=== PATIENT | female | born 2000 | race Caucasian/White ===

== ENCOUNTER 2020-09-18 12:57 | Emergency (ER) | payer OTHER, SELFPAY ==
[2020-09-18 12:59] VITALS: BP 150/107; PULSE 108; RESP 18; TEMP 36.6; O2SAT 96
--- NOTE | 2020-09-18 13:48 | ED.DENTAL ---
HPI - Dental/Oral General Chief complaint: Dental/Oral Stated complaint: tooth pain Time Seen by Provider: 09/18/20 13:10 History of Present Illness HPI Narrative: Patient is a 19-year-old female who presents the ER with dental and facial pain. Reports she has been having pain at tooth #5 over the last week and has been radiating up into her face and behind her eye. Worse with cold water movement. No facial swelling. No drainage. No fevers or chills or sweats. Had originally fractured the tooth months ago. Related Data Home Medications Medication Instructions Recorded Confirmed No Home Medications 09/18/20 09/18/20 Allergies Allergy/AdvReac Type Severity Reaction Status Date / Time No Known Allergies Allergy Verified 09/18/20 13:01 Review of Systems Constitutional: Constitutional: Denies chills, Denies fever(s) and Denies weakness ENT: Denies dysphagia, Denies nasal congestion and Denies sore throat Comments: Dental pain Respiratory: Respiratory: Denies cough and Denies dyspnea PMFSH Past Medical History Medical History (Updated 09/18/20 @ 13:57 by Maicol Sullivan MD) Healthy female adult Surgical History Surgical History (Updated 09/18/20 @ 13:55 by Maicol Sullivan MD) No history of previous surgery Social History Social History (Updated 09/18/20 @ 13:55 by Maicol Sullivan MD) Substance use type: methamphetamine Other substance usage details: Quit 9 months ago Gender identity (if verbalized by the patient): Female Exam Narrative: Exam Narrative: GENERAL: Well-appearing, well-nourished, and in no acute distress. HEAD: Normocephalic, atraumatic. ENT: Mucous membranes moist. Small fractured tooth #5 without obvious abscess. EXTREMITIES: Normal range of motion. Normal strength. NEURO: Alert and oriented x3. PSYCH: Normal mood and affect. Course Vital Signs Vital signs: Vital Signs Temperature 98 F 09/18/20 12:59 Pulse Rate 108 H 09/18/20 12:59 Respiratory Rate 18 09/18/20 12:59 Blood Pressure 150/107 H 09/18/20 12:59 Pulse Oximetry 96 09/18/20 12:59 Temperature 98 F 09/18/20 12:59 Pulse Rate 108 H 09/18/20 12:59 Respiratory Rate 18 09/18/20 12:59 Blood Pressure 150/107 H 09/18/20 12:59 Pulse Oximetry 96 09/18/20 12:59 Discharge Plan Discharge Clinical Impression: Toothache Patient Disposition: Home, Self-Care Condition: Stable Instructions: Toothache (ED) Additional Instructions: Go to the pharmacy and purchase some dental wax to place over your fractured tooth. This may decrease the sensitivity. Take the antibiotics as prescribed. You need to contact your dentist and arrange follow-up care plan. Return to the ER if you cannot breathe, you cannot swallow, you have additional concerns. Prescriptions: New amoxicillin 500 mg capsule 500 mg PO Q8H Qty: 21 RF: 0 No Action No Home Medications RF: 0 Follow-up/Referrals: Adria Fajardo MD [Primary Care Provider] - Stand Alone Forms: Work/School Release IP
[2020-09-18] MEDS: HYDROcodone/acetaminophen (*CRX) 5-325 MG TABLET 1 TAB PO (13:56)
[2020-09-18 14:25] VITALS: PULSE 99; RESP 12; O2SAT 99
== END 2020-09-18 14:25 | disposition home or self-care (01) ==
PROVIDERS: Emergency Provider Emergency Medicine; PCP Family Medicine
DX: K08.89 Other specified disorders of teeth and supporting structures (principal)
CPT/HCPCS: 99283; A9270

== ENCOUNTER 2020-11-06 10:38 | Outpatient (CLI) | payer OTHER, SELFPAY ==
--- NOTE | ~2020-11-06 | US_ITS ---
US OB <= 14 weeks fetus DATE: 11/06/2020 11:50 INDICATION: Supervision of normal TECHNIQUE: Real-time imaging and Doppler analysis COMPARISON: None FINDINGS: Live higgins intrauterine gestation. The fetus was active in various positions. hea rt rate of 152 bpm. Biparietal diameter 2.66 cm; 14 weeks 5 days Head circumference 9.67 cm; 14 weeks 3 days Abdominal circumference 7.78 cm; 14 weeks 2 days Femur length 1.52 cm; 14 weeks 3 days Composite age by Hadlock formula is 14 weeks 3 days +/- 1 week; SANGEETA is 05/04/2021, compared to 05/06/20 by LMP. Head circumference/abdominal supervising architect was 1.24, within normal range of 1.08-1.37. 1.3 x 0.6 x 0.6 cm hypoechoic area adjacent to the gestational sac suggests a small subchorionic hussain dhiraj. Anterior placenta. Subjectively normal amount of amniotic fluid. The left ovary is not visualized. Right ovary 3.9 x 2.7 x 1.6 cm size. There is a 1.3 x 1.8 x 1.1 cm right ovarian cyst. IMPRESSION: Composite age by Hadlock formula is 14 weeks 3 days +/- 1 week; SANGEETA is 05/04/2021, compare d to 05/06/2021 by LMP Possible small subchorionic hematoma. Reviewed, dictated and finalized at [facility]. Reviewed, dictated and finalized at [facility]. IMPRESSION: Composite age by Hadlock formula is 14 weeks 3 days +/- 1 week; SANGEETA is 05/04/2021, compared to 05/06/2021 by LMP Possible small subchorionic hematoma.
== END 2020-11-06 10:39 | disposition home or self-care (01) ==
PROVIDERS: PCP Family Medicine; Visit Provider Obstetrics & Gynecology
DX: Z34.92 Encounter for supervision of normal pregnancy, unspecified, second trimester (principal); Z3A.14 14 weeks gestation of pregnancy
CPT/HCPCS: 76801

== ENCOUNTER 2021-05-17 11:19 | Emergency (ER) | payer OTHER, SELFPAY ==
[2021-05-17 11:43] VITALS: BP 158/100; PULSE 89; RESP 16; TEMP 36.5; O2SAT 98
--- NOTE | 2021-05-17 11:47 | ED.URI ---
HPI - URI/Sore Throat General Chief Complaint: Upper Respiratory Infection Stated Complaint: s/t, runny nose Time Seen by Provider: 05/17/21 11:37 History of Present Illness HPI Narrative: Patient with sore throat congestion and fevers. Reports symptoms started yesterday. Reports her significant other has been sick for the past couple days she concerned and wanted to come in for evaluation. She denies any nausea vomiting or diarrhea. She denies shortness of breath. She does report she completed her vaccination series. She denies chest pain or abdominal pain Related Data Home Medications Medication Instructions Recorded Confirmed No Home Medications 09/18/20 09/18/20 Allergies Allergy/AdvReac Type Severity Reaction Status Date / Time No Known Allergies Allergy Verified 05/17/21 11:46 Review of Systems Review of Systems: CONSTITUTIONAL: Denies fever, chills, or sweats. EYES: Denies visual changes, redness, or discharge. ENT: Reports congestion and sore throat CARDIOVASCULAR: Denies chest pain, palpitations, or edema. RESPIRATORY: Denies dyspnea. GASTROINTESTINAL: Denies abdominal pain, nausea, vomiting, or diarrhea. GENITOURINARY: Denies dysuria or hematuria. SKIN: Denies rash or itching. MUSCULOSKELETAL: Denies back pain, joint pain, or myalgia. NEUROLOGIC: Denies headache, numbness, dizziness, or weakness. PSYCHIATRIC: Denies anxiety or depression. All systems reviewed & are unremarkable except as noted in HPI and below PMFSH Past Medical History Medical History Healthy female adult Surgical History Surgical History No history of previous surgery Social History Social History Substance use type: methamphetamine Other substance usage details: Quit 9 months ago Gender identity (if verbalized by the patient): Female Exam Narrative: GENERAL: Well-appearing, well-nourished, and in no acute distress. HEAD: Normocephalic, atraumatic. EYES: PERRLA and EOMI. ENT: Nares clear, no rhinorrhea or epistaxis. Mucous membranes moist. Erythema in the posterior pharynx no exudates bilateral lymphadenopathy noted NECK: Supple. No masses. No JVD CHEST: Clear to auscultation. No respiratory distress. No wheezes rales or rhonchi HEART: Regular rate and rhythm. No murmur heard. Normal peripheral pulses. ABDOMEN: Soft, nontender, nondistended, normal active bowel sounds. EXTREMITIES: Normal range of motion. No edema. SKIN: Warm, dry, no rash. NEURO: No focal deficits. Alert and oriented x3. PSYCH: Normal mood and affect. Course Reevaluation(s) Reevaluation #1: Patient is resting comfortably feeling improved results and plan reviewed with patient. Patient comfortable outpatient plan. Date: 05/17/21 Time: 12:35 Vital Signs Vital signs: Vital Signs Temperature 36.5 C 05/17/21 11:43 Pulse Rate 89 05/17/21 11:43 Respiratory Rate 16 05/17/21 11:43 Blood Pressure 158/100 H 05/17/21 11:43 Pulse Oximetry 98 05/17/21 11:43 Temperature 36.5 C 05/17/21 11:43 Pulse Rate 89 05/17/21 11:43 Respiratory Rate 16 05/17/21 11:43 Blood Pressure 158/100 H 05/17/21 11:43 Pulse Oximetry 98 05/17/21 11:43 MDM - URI/Sore Throat MDM Narrative Medical decision making narrative: H&P as above, vs with mild hypertension, pt looks clinically well, exam reassuring, labs reassuring, additional labs/img considered, symptomatic relief available as needed, on reevaluation pt continues to looks clinically well. Suspect viral process, dns severe sepsis, pneumonia, AERONAUTICAL DESIGN ENGINEER, airway compromise. plan to tx/monitor as op w/ pcm f/u findings/plan discussed with pt, pt agree/comfortable with plan, return precautions given. Lab Data Labs: Strep Screen Presumptive Negative *(Reference Range: Negative)*
[2021-05-17] MEDS: ACETAMINOPHEN 500 MG TABLET 1000 MG PO (11:57)
== END 2021-05-17 12:53 | disposition home or self-care (01) ==
PROVIDERS: Emergency Provider Emergency Medicine
DX: J02.9 Acute pharyngitis, unspecified (principal)
CPT/HCPCS: 87081; 87880; 99283; A9270

== ENCOUNTER 2024-01-03 14:59 | Emergency (ER) | payer BC, MEDICAID, SELFPAY ==
[2024-01-03 15:04] VITALS: PULSE 88; RESP 20; TEMP 36.7; O2SAT 100
--- NOTE | 2024-01-03 15:09 | ED.DENTAL ---
HPI - Dental/Oral General Chief complaint: Dental/Oral Stated complaint: earache Time Seen by Provider: 01/03/24 15:28 History of Present Illness HPI Narrative: 23-year-old female presents to the emergency department for left tooth and ear pain for 1 day. Patient states the pain started in her left lower molar and now has moved to her left ear. She is very tearful in triage and she states this is due to the pain. She has not taken anything for pain. She denies fever, nausea or vomiting. She does not have a dentist. Denies possibility of Related Data Allergies Allergy/AdvReac Type Severity Reaction Status Date / Time No Known Allergies Allergy Verified 05/17/21 11:46 Review of Systems Review of Systems: CONSTITUTIONAL: Denies fever, chills, or sweats. EYES: Denies visual changes, redness, or discharge. ENT: See HPI CARDIOVASCULAR: Denies chest pain, palpitations, or edema. RESPIRATORY: Denies cough or dyspnea. GASTROINTESTINAL: Denies abdominal pain, nausea, vomiting, or diarrhea. GENITOURINARY: Denies dysuria or hematuria. SKIN: Denies rash or itching. MUSCULOSKELETAL: Denies back pain, joint pain, or myalgia. NEUROLOGIC: Denies headache, numbness, or weakness. PSYCHIATRIC: Denies anxiety or depression. [facility] Past Medical History Medical History Healthy female adult Surgical History Surgical History No history of previous surgery Social History Social History Substance use type: methamphetamine Other substance usage details: Quit 9 months ago Gender identity (if verbalized by the patient): Female Exam Narrative: GENERAL: Tearful, no acute distress HEAD: Normocephalic, atraumatic. EYES: PERRLA and EOMI. ENT: Nares clear, no rhinorrhea or epistaxis. Mucous membranes moist. Left TM is steward nonbulging with normal canal. No pain with movement of auricle. No mastoid tenderness. Multiple caries throughout dentition, specifically in the left lower jaw. No periapical abscess or evidence of deep space infection. Floor mouth is soft without crepitus. No trismus. Patient tolerating secretions. NECK: Supple. CHEST: Clear to auscultation. No respiratory distress. HEART: Regular rate and rhythm. No murmur heard. Normal peripheral pulses. EXTREMITIES: Normal range of motion. No edema. SKIN: Warm, dry, no rash. NEURO: No focal deficits. Alert and oriented x3 Course Vital Signs Vital signs: Vital Signs Temperature 98.0 F 01/03/24 15:04 Pulse Rate 88 01/03/24 15:04 Respiratory Rate 20 01/03/24 15:04 Pulse Oximetry 100 01/03/24 15:04 Oxygen Delivery Room Air 01/03/24 15:04 Temperature 98.0 F 01/03/24 15:04 Pulse Rate 88 01/03/24 15:04 Respiratory Rate 20 01/03/24 15:04 Pulse Oximetry 100 01/03/24 15:04 Oxygen Delivery Room Air 01/03/24 15:04 MDM - Dental/Oral MDM Narrative Medical decision making narrative: 23-year-old female presents to the emergency department for left lower dental pain that is radiating to her left ear for 1 day. Triage vital significant for hypertension, patient is crying on exam. Will offer pain control and re-evaluate. Exam is significant for multiple caries throughout lower dentition. No evidence of periapical abscess or deep space infection. She is tolerating secretions. No muffled voice. Left TM is steward non-bulging with normal canal. Suspect dentition is source of patient's pain. Will providing 800mg of ibuprofen and start her on Augmentin. Will provide dental referrals. Strict ED return precautions discussed. She is agreeable to plan verbalized understanding. Discharged in stable condition. Discharge Plan Discharge Clinical Impression: Dental caries Patient Disposition: Home, Self-Care Condition: Stable Instructions: Antibio
[2024-01-03] MEDS: AMOXICILLIN/CLAVULANATE K 875-125 MG TAB 1 TABLET PO (15:18)
[2024-01-03] MEDS: IBUPROFEN 400 MG TABLET 800 MG PO (15:18)
[2024-01-03 15:57] VITALS: BP 160/110; PULSE 73; RESP 20; O2SAT 100
== END 2024-01-03 15:58 | disposition home or self-care (01) ==
LOC: ANHED 15:46
PROVIDERS: Emergency Provider Physician Assistant
DX: K02.9 Dental caries, unspecified (principal)
CPT/HCPCS: 99283; A9270